=== PATIENT | female | born 1970 | race Caucasian/White ===

== ENCOUNTER 2017-12-08 13:07 | Emergency (ER) | payer MEDICAID ==
[~2017-12-08] VITALS: Ht 162.6 cm; Wt 73.7 kg
[2017-12-08 13:12] VITALS: Ht 162.6 cm; Wt 73.7 kg
[2017-12-08 16:09] VITALS: BP 124/76
== END 2017-12-08 16:09 | disposition home or self-care (01) ==
LOC: ED 13:07
DX: M17.4 Other bilateral secondary osteoarthritis of knee (principal)